=== PATIENT | female | born 1990 | race Caucasian/White ===

== ENCOUNTER → 2022-01-28 17:04 | Outpatient (CLI) | payer OTHER, MEDICAID, SELFPAY ==
[2022-01-28 18:25] LABS: Free T4, Direct Thyroxine 1.19 ng/dL (0.78-2.19)
[2022-01-30 16:49] LABS: ANA Screen, IFA Negative (.)
[2022-01-30 22:36] LABS: Dilute Russell Viper Venom 40.9 sec (0.0-47.0); Lupus Reflex Interpretation Comment: (.); PTT-LA 36.4 sec (0.0-51.9)
[2022-02-02 10:59] LABS: B2-Glycoprotein I IgA AB < 9 (0-25); B2-Glycoprotein I IgG AB < 9 (0-20); B2-Glycoprotein I IgM AB < 9 (0-32); Cardiolipin Ab IgA < 9 APL U/mL (0-11); Cardiolipin Ab IgG < 9 GPL U/mL (0-14); Cardiolipin Ab IgM < 9 MPL U/mL (0-12); Dilute Russell Viper Venom 40.3 sec (0.0-47.0); Lupus Reflex Interpretation Comment: (.); PTT-LA 35.4 sec (0.0-51.9)
[2022-02-12 13:07] LABS: Cardiolipin IgA Negative
== END ==
PROVIDERS: Referring Provider Obstetrics & Gynecology; Visit Provider Obstetrics & Gynecology
DX: N96 Recurrent pregnancy loss (principal)
CPT/HCPCS: 36415; 81291; 83520; 84146; 84439; 84443; 85598; 85613; 85732; 86038; 86146; 86147; 86148

== ENCOUNTER 2022-03-19 18:56 | Emergency (ER) | payer OTHER, MEDICAID, SELFPAY ==
[2022-03-19 19:00] VITALS: BP 128/74; PULSE 102; RESP 15; TEMP 36.7; O2SAT 100; BMI 27.3
--- NOTE | 2022-03-19 19:10 | DI.RAD.S_ITS ---
PROCEDURE: XR CHEST 2V INDICATIONS: cough TECHNIQUE: 2 views of the chest were acquired. COMPARISON: None. FINDINGS: Surgical changes and devices: None. Lungs and pleura: No consolidation, pleural effusions or pneumothorax. 4.8 mm nodular density on the lateral view. Mediastinum: Mediastinal contours are normal. Heart size is normal. Bones and chest wall: No suspicious bony abnormalities. Soft tissues appear unremarkable. IMPRESSION: 1. No acute cardiopulmonary abnormality. 2. 4.8 mm nodular density on the lateral view, which may reflect a vessel on end. If the patient has elevated risk factors for lung cancer, consider low-dose CT imaging. Dictated by: Chester Martinez M.D. on 03/19/2022 at 19:31 Approved by: Chetser Martinez M.D. on 03/19/2022 at 19:32
--- NOTE | 2022-03-19 22:38 | ED.CHESTPAIN ---
HPI - Chest Pain General Chief Complaint: Upper Respiratory Symptoms Stated Complaint: Thinks pneumonia Time Seen by Provider: 03/19/22 22:37 Source: patient Mode of arrival: Ambulatory Limitations: no limitations Limitations: no limitations History of Present Illness HPI narrative: This is a 32-year-old female who with complaint of 6 days of nasal congestion, headache, muscle aches, nausea, some burning sensation in her chest and wet cough which has been nonproductive. Patient has not had any vomiting. She is not short of breath. She has had some occasional episodes of diarrhea. No urinary symptoms. Patient did have COVID infection several months ago she states she is otherwise healthy she is on progesterone daily. She had surgery on the right for an ectopic . She is allergic to guaifenesin. She denies tobacco or vaping, occasional alcohol, no illicit. Related Data Previous Rx's Medication Instructions Recorded progesterone micronized 200 mg 200 mg PO BEDTIME #30 cap 12/18/21 capsule Allergies Allergy/AdvReac Type Severity Reaction Status Date / Time guaifenesin [From Mucinex] Allergy Intermediate Hives Verified 03/19/22 19:04 Review of Systems Review of Systems ROS Unobtainable: All systems reviewed & are unremarkable except as noted in HPI and below Patient History Medical History Chlamydia (~2014) Herpes (~2015) Surgical History Anesthesia Status post laparoscopic surgery (~05/2021) [place] teeth removed (~2013) Family History Father Hypertension Hyperlipidemia Alcoholism Social History Smoking Status: Never smoker Smoking Status: Never smoker alcohol intake frequency: holidays/special occasions only Substance Use Type: does not use Exam Narrative Exam Narrative: GEN: well nourished, well appearing female, alert and oriented x 3, patient appears to be in mild distress. HEENT: Atraumatic, pupils are equal round reactive to light, extraocular movements are intact, nares are clear. Throat is clear without any exudates, erythema, tonsillar enlargement or uvular deviation HEART: Regular rate and rhythm without murmur, clicks, rubs. LUNGS:Lungs clear to auscultation, no wheezes, rales, crackles, chest moves symmetrically, no tachypnea or accessory muscle use. Patient does have a frequent wet cough although nonproductive in the department. ABD:bowel sounds normal, soft, non-tender, no guarding, rebound, rigidity, no masses noted, no hepatosplenomegaly :No CVA tenderness MSCL: Full range of motion, normal gait NEURO:CN 2-12 intact, sensation normal Initial Vital Signs Initial Vital Signs: Vital Signs Temperature 98.1 F 03/19/22 19:00 Pulse Rate 102 H 03/19/22 19:00 Respiratory Rate 15 03/19/22 19:00 Blood Pressure 128/74 03/19/22 19:00 Pulse Oximetry 100 03/19/22 19:00 Course Orders Ordered: ED Orders 03/19/22 19:10 Chest [XR chest 2V] Stat Vital Signs Vital signs: Vital Signs - 8 hr 03/19/22 22:54 03/19/22 22:55 Pulse Rate 88 79 Blood Pressure 110/79 Pulse Oximetry 100 99 MDM - Chest Pain Imaging Data Chest x-ray: Radiologist's Impression: [place] [address] XRay Report Signed Patient: Isidro Krueger MR#: [id number] : 1990 Acct:[id number] Age/Sex: 32 / F Date of Service: 03/19/22 Loc: ED Accession Number: [id number] ?? Procedure: XR chest 2V Ordering Provider: Lacey Heart D.O. PROCEDURE:? XR CHEST 2V ? INDICATIONS:? cough ? TECHNIQUE:? 2 views of the chest were acquired.? ? COMPARISON:? None. ? FINDINGS:? ? Surgical changes and devices:? None.? ? Lungs and pleura:? No consolidation, pleural effusions or pneumothorax.? 4.8 mm nodular density on the lateral view. ? Mediastinum:? Mediastinal contours are normal.? Heart size is normal.? ? Bones and chest wall:? No suspicious bony abnormalities.? Soft tissues appear unremarkable.? ? IMPRESSION:? 1. No acute cardiopulmonary abnormality. 2. 4.8 mm nodular density on the lateral view, which may reflect a vessel on end.? If the patient has elevated risk factors for lung cancer, consider low-dose CT imaging. ? ? Dictated by: Chester Martinez M.D. on 03/19/2022 at 19:31 ? ? Approved by: Chester Martinez M.D. on 03/19/2022 at 19:32?? MDM Narrative Medical decision making narrative: This is a 32-year-old female who comes to the emergency department with complaint of chest discomfort, cough and generally feeling unwell with myalgias, nausea but no vomiting for the past week. Patient's chest x-ray is negative although there is questionable nodular density. Patient is low risk but this was shared with her that if she prefers to follow-up further imaging recommendations are or included below. Patient's exam findings are consistent with upper respiratory infection. Plan for symptomatic care. Patient defers anything for her cough. Discharge Plan Departure Patient Disposition: Home Clinical Impression: Upper respiratory infection Instructions: DI for Viral Upper Respiratory Infection -- Adult Activity Restrictions/Additional Instructions: Follow-up with your physician if your symptoms are not starting to improve over the next week. You may take Tylenol and/or ibuprofen as needed for pain. Some individuals find honey and hot tea or warm liquids to be helpful for cough. Please return for rapidly worsening chest pain, shortness of breath, difficulty breathing, passing out, new swelling in your extremities or other new or concerning symptoms. Prescriptions: No Action progesterone micronized 200 mg capsule 200 mg PO BEDTIME Qty: 30 7RF Rx Instructions: 1 tab daily day 14-28 of cycle Referrals: Miscellaneous,MD Valery [Primary Care Provider] -
[2022-03-19 22:54] VITALS: PULSE 88; O2SAT 100
[2022-03-19 22:55] VITALS: BP 110/79; PULSE 79; O2SAT 99
== END 2022-03-19 23:03 | disposition home or self-care (01) ==
PROVIDERS: Emergency Provider Emergency Medicine
DX: J06.9 Acute upper respiratory infection, unspecified (principal); R07.9 Chest pain, unspecified; Z86.16 Personal history of COVID-19
CPT/HCPCS: 71046; 99281; 99283

== ENCOUNTER → 2022-04-16 11:14 | Outpatient (CLI) | payer OTHER, MEDICAID, SELFPAY ==
[2022-04-16 13:42] LABS: HCG Quantitative /Beta subunit < 2.4 mIU/mL
== END ==
PROVIDERS: Referring Provider Obstetrics & Gynecology; Visit Provider Obstetrics & Gynecology
DX: N91.2 Amenorrhea, unspecified (principal)
CPT/HCPCS: 36415; 84702

== ENCOUNTER → 2022-05-23 13:17 | Outpatient (CLI) | payer OTHER, MEDICAID, SELFPAY ==
[2022-05-23 15:14] LABS: HCG Quantitative /Beta subunit < 2.4 mIU/mL
== END ==
PROVIDERS: Referring Provider Obstetrics & Gynecology; Visit Provider Obstetrics & Gynecology
DX: N91.2 Amenorrhea, unspecified (principal)
CPT/HCPCS: 36415; 84702